=== PATIENT | female | born 1960 | race American Indian/Alaskan Native ===

== ENCOUNTER 2020-06-05 08:52 | Emergency (ER) | payer MEDICAID, MEDICARE ==
[2020-06-05] MEDS ORDERED: KETOROLAC 30 MG/1 ML INJ IV ONE (10:34)
[2020-06-05] MEDS ORDERED: MORPHINE 4 MG/1 ML INJ IV ONE (10:34)
[2020-06-05] MEDS ORDERED: ONDANSETRON 4 MG/2 ML INJ IV NR (11:00)
--- NOTE | 2020-06-05 11:00 | XRay Report ---
CHEST 2 VIEWS INDICATION: Chest Pain. COMPARISON: None FINDINGS: Support devices: None. Heart: Within normal limits. Lungs: No acute air space or interstitial disease. Pleura: No significant pleural effusion. No pneumothorax. Additional findings: None. IMPRESSION: 1. No acute findings. Signer Name: Washington Raman MD Signed: 06/05/2020 10:56 AM Workstation Name: [email or web address]
[2020-06-05 11:24] LABS: Bacteria,Urine 1+ /HPF (Negative); Bilirubin,Urine NEG (Negative); Blood,Urine NEG (Negative); Color,Urine Yellow (Yellow); Mucus,Urine FEW /HPF; Protein,Urine <15 mg/dL mg/dL (Negative); Urobilinogen,Urine < 2.0 mg/dL (<2.0)
[2020-06-05 11:26] LABS: Basophils % (Auto) 0.3 % (0.0-1.8); Eosinophils # (Auto) 0.1 K/mm3 (0.0-0.4); Eosinophils % (Auto) 0.7 % (0.0-4.3); Hematocrit 32.4 % (30.3-42.9); Hemoglobin 11.1 gm/dl (10.1-14.3); Lymphocytes # (Auto) 3.1 K/mm3 (1.2-5.4); Lymphocytes % (Auto) 32.4 % (13.4-35.0); Mean Corpuscular HGB Conc 34 % (30-34); Mean Corpuscular Volume 80 fl (79-97); Monocytes # (Auto) 0.7 K/mm3 (0.0-0.8); Monocytes % (Auto) 7.1 % (0.0-7.3); Platelet Count 232 K/mm3 (140-440); Red Blood Count 4.05 M/mm3 (3.65-5.03); Red Cell Distribution Width 14.7 % (13.2-15.2)
[2020-06-05 11:35] LABS: INR 0.96 (0.87-1.13)
[2020-06-05 11:36] LABS: Partial Thromboplastin Time 26.3 Sec. (24.2-36.6)
[2020-06-05 11:46] LABS: Alanine Aminotransferase 9 units/L (7-56); Albumin 4.2 g/dL (3.9-5); BUN/Creatinine Ratio 22; Blood Urea Nitrogen 20 mg/dL (7-17); Calcium 10.4 mg/dL (8.4-10.2); Hemolysis Index 1
[2020-06-05] MEDS ORDERED: POTASSIUM CHLORIDE ER 20 MEQ TAB PO ONE (11:52)
--- NOTE | 2020-06-05 12:07 | Emergency Department Report ---
ED Lower Extremity HPI - General Chief Complaint: Extremity Problem,Nontraumatic Stated Complaint: LT LEG PAIN Time Seen by Provider: 06/05/20 10:28 Source: patient Mode of arrival: Ambulatory Limitations: No Limitations - History of Present Illness Initial Comments: This is a 60-year-old female nontoxic, well nourished in appearance, no acute signs of distress presents to the ED with c/o of left leg pain x several days. Patient denies any trauma or injuries. Patient denies any radiation of pain. Patient denies any numbness, tingling, fever, chills, nausea, vomiting, chest pain, shortness of breath, headache, stiff neck. Patient denies any joint swelling or joint redness. Patient denies decreased range of motion. Patient denies abnormal gait. Patient denies any long car rides or recent hospital stays. Patient stated allergies to tramadol and meperdine. PMH includes HTN which is compliant with her medication and does follow-up with a PCP for this. Patient stated normal blood pressure is in the high 190s/110s. -: days(s) Injury: Leg: Left Severity: mild Severity scale (0 -10): 8 Improves With: nothing Worsens With: nothing Associated Symptoms: ambulatory. denies: snap/pop sensation, swelling, numbness, tingling, unable to bear weight, able to partially bear weight - Related Data Previous Rx's Medication Instructions Recorded Last Taken Type Acetaminophen/Codeine [Tylenol 1 tab PO Q8H PRN #8 tab 02/03/20 Unknown Rx /Codeine # 3 tab] Cyclobenzaprine [Flexeril 10 MG 10 mg PO TID PRN #15 tablet 02/03/20 Unknown Rx TAB] Diclofenac Sodium 50 mg PO TID PRN #21 tablet. 03/01/20 Unknown Rx Methocarbamol [Robaxin] 500 mg PO Q8H PRN #30 tablet 03/01/20 Unknown Rx cephALEXin [Keflex] 500 mg PO Q8HR #21 cap 06/05/20 Unknown Rx Allergies Allergy/AdvReac Type Severity Reaction Status Date / Time meperidine [From Demerol] Allergy Unknown Verified 02/03/20 08:17 tramadol Allergy Unknown Verified 02/03/20 08:17 ED Review of Systems ROS: Stated complaint: LT LEG PAIN Other details as noted in HPI Comment: All other systems reviewed and negative Constitutional: denies: chills, fever Eyes: denies: eye pain, eye discharge, vision change ENT: denies: ear pain, throat pain Respiratory: denies: cough, shortness of breath, wheezing Cardiovascular: denies: chest pain, palpitations Endocrine: no symptoms reported Gastrointestinal: denies: abdominal pain, nausea, diarrhea Genitourinary: denies: urgency, dysuria, discharge Musculoskeletal: denies: back pain, joint swelling, arthralgia Skin: denies: rash, lesions Neurological: denies: headache, weakness, paresthesias Psychiatric: denies: anxiety, depression Hematological/Lymphatic: denies: easy bleeding, easy bruising ED Past Medical Hx - Past Medical History Previous Medical History?: Yes Hx Hypertension: Yes Additional medical history: sciatica - Surgical History Past Surgical History?: Yes Additional Surgical History: Breast - Social History Smoking Status: Never Smoker Substance Use Type: None - Medications Home Medications: Home Medications Medication Instructions Recorded Confirmed Last Taken Type Acetaminophen/Codeine [Tylenol 1 tab PO Q8H PRN #8 tab 02/03/20 Unknown Rx /Codeine # 3 tab] Cyclobenzaprine [Flexeril 10 MG 10 mg PO TID PRN #15 tablet 02/03/20 Unknown Rx TAB] Diclofenac Sodium 50 mg PO TID PRN #21 tablet.dr 03/01/20 Unknown Rx Methocarbamol [Robaxin] 500 mg PO Q8H PRN #30 tablet 03/01/20 Unknown Rx cephALEXin [Keflex] 500 mg PO Q8HR #21 cap 06/05/20 Unknown Rx ED Physical Exam - General Limitations: No Limitations General appearance: alert, in no apparent distress - Head Head exam: Present: atraumatic, normocephalic - Eye Eye exam: Present: normal appearance, PERRL, EOMI - Neck Neck exam: Present: normal inspection, full ROM. Absent: tenderness, meningismus, lymphadenopathy - Respiratory Respiratory exam: Present: normal lung sounds bilaterally. Absent: respiratory distress, wheezes, rales, rhonchi, stridor, chest wall tenderness, accessory muscle use, decreased breath sounds, prolonged expiratory - Cardiovascular Cardiovascular Exam: Present: regular rate, normal rhythm, normal heart sounds. Absent: bradycardia, tachycardia, irregular rhythm, systolic murmur, diastolic murmur, rubs, gallop - GI/Abdominal GI/Abdominal exam: Present: soft, normal bowel sounds. Absent: distended, tenderness, guarding, rebound, rigid, diminished bowel sounds - Extremities Exam Extremities exam: Present: normal inspection, full ROM, tenderness, normal capillary refill. Absent: joint swelling, calf tenderness - Expanded Lower Extremity Exam Left Hip exam: Present: normal inspection, full ROM, external rotation, internal rotation, pelvic stability. Absent: tenderness, swelling, abrasion, laceration, ecchymosis, deformity, crepidus, dislocation, erythema, shortening Upper Leg exam: Present: normal inspection, full ROM, tenderness. Absent: swelling, abrasion, laceration, ecchymosis, deformity, crepidus, dislocation, erythema Knee exam: Present: normal inspection, full ROM, full knee extension. Absent: tenderness, swelling, abrasion, laceration, ecchymosis, deformity, crepidus, dislocation, erythema, effusion, pain w/ pronation/supination, posterior draw sign, pain/laxity with valgus, pain/laxity with varus Lower Leg exam: Present: normal inspection, full ROM. Absent: tenderness, swelling, abrasion, laceration, ecchymosis, deformity, crepidus, dislocation, erythema, palpable cord, Yue's sign Ankle exam: Present: normal inspection, full ROM. Absent: tenderness, swelling, abrasion, laceration, ecchymosis, deformity, crepidus, dislocation, erythema, anterior draw sign Foot/Toe exam: Present: normal inspection, full ROM. Absent: tenderness, swelling, abrasion, laceration, ecchymosis, deformity, crepidus, dislocation, erythema, puncture wound, foreign body, calcaneal tenderness, tenderness at base of 5th metatarsal, nail avulsion, subungual hematoma Neuro vascular tendon exam: Present: no vascular compromise Gait: Positive: observed and normal 1 - pain here - Back Exam Back exam: Present: normal inspection, full ROM. Absent: tenderness - Neurological Exam Neurological exam: Present: alert, oriented X3, normal gait - Psychiatric Psychiatric exam: Present: normal affect, normal mood - Skin Skin exam: Present: warm, dry, intact, normal color. Absent: rash ED Course Vital Signs 06/05/20 06/05/20 06/05/20 09:10 11:36 12:43 Temperature 98.3 F Pulse Rate 83 77 Respiratory 19 18 12 Rate Blood Pressure 223/118 Blood Pressure 189/99 [Right] O2 Sat by Pulse 98 97 Oximetry - Reevaluation(s) Reevaluation #1: 06/05/20 12:06 Patient is speaking in full sentences with no signs of distress noted. ED Lower Extremity MDM - Lab Data Result diagrams: 06/05/20 10:55 06/05/20 10:55 Lab Results 06/05/20 06/05/20 06/05/20 Range/Units 10:55 10:55 10:55 WBC 9.5 (4.5-11.0) K/mm3 RBC 4.05 (3.65-5.03) M/mm3 Hgb 11.1 (10.1-14.3) gm/dl Hct 32.4 (30.3-42.9) % MCV 80 (79-97) fl MCH 27 L (28-32) pg MCHC 34 (30-34) % RDW 14.7 (13.2-15.2) % Plt Count 232 (140-440) K/mm3 Lymph % (Auto) 32.4 (13.4-35.0) % [place] % (Auto) 7.1 (0.0-7.3) % Eos % (Auto) 0.7 (0.0-4.3) % Baso % (Auto) 0.3 (0.0-1.8) % Lymph # (Auto) 3.1 (1.2-5.4) K/mm3 [place] # (Auto) 0.7 (0.0-0.8) K/mm3 Eos # (Auto) 0.1 (0.0-0.4) K/mm3 Baso # (Auto) 0.0 (0.0-0.1) K/mm3 Seg Neutrophils % 59.5 (40.0-70.0) % Seg Neutrophils # 5.7 (1.8-7.7) K/mm3 PT 12.7 (12.2-14.9) Sec. INR 0.96 (0.87-1.13) APTT 26.3 (24.2-36.6) Sec. Sodium 144 (137-145) mmol/L Potassium 3.2 L (3.6-5.0) mmol/L Chloride 105.9 (98-107) mmol/L Carbon Dioxide 29 (22-30) mmol/L Anion Gap 12 mmol/L BUN 20 H (7-17) mg/dL Creatinine 0.9 (0.6-1.2) mg/dL Estimated GFR > 60 ml/min BUN/Creatinine Ratio 22 % Glucose 95 (65-100) mg/dL Calcium 10.4 H (8.4-10.2) mg/dL Total Bilirubin 0.70 (0.1-1.2) mg/dL AST 13 (5-40) units/L ALT 9 (7-56) units/L Alkaline Phosphatase 125 (35-129) units/L Troponin T < 0.010 (0.00-0.029) ng/mL Total Protein 7.5 (6.3-8.2) g/dL Albumin 4.2 (3.9-5) g/dL Albumin/Globulin Ratio 1.3 % Urine Color (Yellow) Urine Turbidity (Clear) Urine pH (5.0-7.0) Ur Specific [place] (1.003-1.030) Urine Protein (Negative) mg/dL Urine Glucose (UA) (Negative) mg/dL Urine Ketones (Negative) mg/dL Urine Blood (Negative) Urine Nitrite (Negative) Urine Bilirubin (Negative) Urine Urobilinogen (<2.0) mg/dL Ur Leukocyte Esterase (Negative) Urine WBC (Auto) (0.0-6.0) /HPF Urine RBC (Auto) (0.0-6.0) /HPF U Epithel Cells (Auto) (0-13.0) /HPF Urine Bacteria (Auto) (Negative) /HPF Urine Mucus /HPF 06/05/ Range/Units 11:07 WBC (4.5-11.0) K/mm3 RBC (3.65-5.03) M/mm3 Hgb (10.1-14.3) gm/dl Hct (30.3-42.9) % MCV (79-97) fl MCH (28-32) pg MCHC (30-34) % RDW (13.2-15.2) % Plt Count (140-440) K/mm3 Lymph % (Auto) (13.4-35.0) % [place] % (Auto) (0.0-7.3) % Eos % (Auto) (0.0-4.3) % Baso % (Auto) (0.0-1.8) % Lymph # (Auto) (1.2-5.4) K/mm3 [place] # (Auto) (0.0-0.8) K/mm3 Eos # (Auto) (0.0-0.4) K/mm3 Baso # (Auto) (0.0-0.1) K/mm3 Seg Neutrophils % (40.0-70.0) % Seg Neutrophils # (1.8-7.7) K/mm3 PT (12.2-14.9) Sec. INR (0.87-1.13) APTT (24.2-36.6) Sec. Sodium (137-145) mmol/L Potassium (3.6-5.0) mmol/L Chloride (98-107) mmol/L Carbon Dioxide (22-30) mmol/L Anion Gap mmol/L BUN (7-17) mg/dL Creatinine (0.6-1.2) mg/dL Estimated GFR ml/min BUN/Creatinine Ratio % Glucose (65-100) mg/dL Calcium (8.4-10.2) mg/dL Total Bilirubin (0.1-1.2) mg/dL AST (5-40) units/L ALT (7-56) units/L Alkaline Phosphatase (35-129) units/L Troponin T (0.00-0.029) ng/mL Total Protein (6.3-8.2) g/dL Albumin (3.9-5) g/dL Albumin/Globulin Ratio % Urine Color Yellow (Yellow) Urine Turbidity Clear (Clear) Urine pH 5.0 (5.0-7.0) Ur Specific [place] 1.018 (1.003-1.030) Urine Protein <15 mg/dl (Negative) mg/dL Urine Glucose (UA) Neg (Negative) mg/dL Urine Ketones Neg (Negative) mg/dL Urine Blood Neg (Negative) Urine Nitrite Pos (Negative) Urine Bilirubin Neg (Negative) Urine Urobilinogen < 2.0 (<2.0) mg/dL Ur Leukocyte Esterase Tr (Negative) Urine WBC (Auto) 15.0 H (0.0-6.0) /HPF Urine RBC (Auto) 5.0 (0.0-6.0) /HPF U Epithel Cells (Auto) 7.0 (0-13.0) /HPF Urine Bacteria (Auto) 1+ (Negative) /HPF Urine Mucus Few /HPF - EKG Data 06/05/20 12:19 Normal sinus rhythm at 67 bpm. Left ventricular hypertrophy. Borderline ST elevation, lateral leads. Reviewed and signed by MD. - Radiology Data Referring Physician: ELISHA PARRISH Patient Name: COLIN RAPHAEL Date of : 1960 Sex: Female Report Date: 2020-06-05 Report Status: [place] [address] XRay Report Signed Patient: COLIN RAPHAEL MR #: [id number] : 1960 Acct:[id number] Age/Sex: 60 / F ADM Date: 06/05/20 Loc: ED Attending Dr: Ordering Physician: ELISHA PARRISH NP Date of Service: 06/05/20 Procedure(s): XR chest routine 2V Accession Number(s): [id number] cc: ELISHA PARRISH NP Fluoro Time In Minutes: CHEST 2 VIEWS INDICATION: Chest Pain. COMPARISON: None FINDINGS: Support devices: None. Heart: Within normal limits. Lungs: No acute air space or interstitial disease. Pleura: No significant pleural effusion. No pneumothorax. Additional findings: None. IMPRESSION: 1. No acute findings. Signer Name: Washington Raman MD Signed: 06/05/2020 10:56 AM Workstation Name: [id number] Transcribed By: WG Dictated By: Washington Raman MD Electronically Authenticated By: Washington Raman MD Signed Date/Time: 06/05/20 105 DD/ 105 TD/TT: - Medical Decision Making 60-year-old female that presents with left leg pain, hypertension and UTI. Patient is stable and was examined by me. Doppler ultrasound has been ordered but patient stated she has to leave before getting the Doppler done. Patient was educated and instructed of my concerns for possible DVT but patient refused and signed AGAINST MEDICAL ADVICE. Patient received medical treatment in ER blister has significantly decreased prior to signing AMA. I will treat patient with Keflex for UTI. Patient was instructed to follow-up with a primary care doctor JEVON or if symptoms worsen and continue return to emergency room as soon as possible. At time of signing AMA, the patient does not seem toxic or ill in appearance. No acute signs of distress noted. Patient agrees to treatment plan of care. No further questions noted by the patient. Critical care attestation.: If time is entered above; I have spent that time in minutes in the direct care of this critically ill patient, excluding procedure time. ED Disposition Clinical Impression: Hypokalemia, Left leg pain UTI (urinary tract infection) Qualifiers: Urinary tract infection type: acute cystitis Hematuria presence: without hematuria Qualified Code(s): N30.00 - Acute cystitis without hematuria HTN (hypertension) Qualifiers: Hypertension type: unspecified Qualified Code(s): I10 - Essential (primary) hypertension Disposition: MED SCREENING EXAM-LEFT Is pt being admited?: No Does the pt Need Aspirin: No Condition: Undetermined Instructions: Hypertension (ED), Urinary Tract Infection, Adult, [id number], Hypokalemia, Hypertension, Adult Additional Instructions: Follow-up with a primary care doctor as soon as possible or if symptoms worsen and continue return to emergency room as soon as possible. Your condition may be serious as instructed and educated today in the ER but you decided to leave AGAINST MEDICAL ADVICE. It is highly recommended to see a provider as soon as possible to rule out serious complications that was described to you during your ED stay. Prescriptions: cephALEXin [Keflex] 500 mg PO Q8HR #21 cap Referrals: PRIMARY MD DEANNA [Primary Care Provider] - JEVON RONY HARO MD [Staff Physician] - JEVON Forms: AMA Form Time of Disposition: 13:08
[2020-06-05 12:43] VITALS: BP 189/99
== END 2020-06-05 13:12 | disposition left against medical advice (07) ==
LOC: ED 08:52
DX: N39.0 Urinary tract infection, site not specified (principal); E87.6 Hypokalemia; M79.605 Pain in left leg; I10 Essential (primary) hypertension; Z98.890 Other specified postprocedural states; Z79.899 Other long term (current) drug therapy; Z88.8 Allergy status to other drugs, medicaments and biological substances; Z53.21 Procedure and treatment not carried out due to patient leaving prior to being seen by health care provider
CPT/HCPCS: 36415; 71046; 80053; 81001; 84484; 85025; 85610; 85730; 87086; 93005; J1885; J2270; J2405

== ENCOUNTER 2020-11-18 08:09 | Emergency (ER) | payer MEDICARE ==
--- NOTE | 2020-11-18 10:40 | Emergency Department Report ---
ED Back Pain/Injury HPI - General Chief Complaint: Extremity Injury, Lower Stated Complaint: LT HIP PAIN/SCIATICA Time Seen by Provider: 11/18/20 10:35 Source: patient Limitations: No Limitations - History of Present Illness Initial Comments: 60-year-old female with a past medical history of hypertension, and a known history of sciatica secondary to herniated disc in her lower back presents to the ER today with complaints of flareup of her sciatic nerve pain on the left side. Patient states that her sciatic nerve pain typically has been intermittent in the past but recently in the past 3 months it has been a constant waxing and waning pain. She states that she recently moved here from [place] and while he was at [place] she was being treated by pain management as well as her primary care doctor for this pain. She was being prescribed hydrocodone by pain management and Motrin by her primary care doctor. S she states that she is out of her medications. He states that since moving here she has been having issues switching her insurance and therefore has not established with a PCP as yet. He denies any recent injury or strenuous activity. She states that the pain radiates down into her left leg with some tingling intermittently in her left toes. She denies any lower extremity weakness, saddle anesthesia, abdominal pain, bowel or bladder incontinence, urinary retention or constipation, chest pain or shortness of breath. She denies any fever or chills. MD Complaint: back pain -: year(s) (Chronic ) - Related Data Previous Rx's Medication Instructions Recorded Last Taken Type Diclofenac Sodium 50 mg PO TID PRN #21 tablet. 03/01/20 Unknown Rx Methocarbamol [Robaxin] 500 mg PO Q8H PRN #30 tablet 03/01/20 Unknown Rx cephALEXin [Keflex] 500 mg PO Q8HR #21 cap 06/05/20 Unknown Rx Acetaminophen/Codeine [Tylenol 1 tab PO Q8H PRN #8 tab 11/18/20 Unknown Rx /Codeine # 3 tab] Cyclobenzaprine [Flexeril 10 MG 10 mg PO TID PRN #15 tablet 11/18/20 Unknown Rx TAB] Ibuprofen [Motrin] 600 mg PO Q8H PRN #30 tablet 11/18/20 Unknown Rx methylPREDNISolone [Medrol 4MG 4 mg PO DAILY #1 tab.ds.pk 11/18/20 Unknown Rx DOSEPAK (21 tabs)] Allergies Allergy/AdvReac Type Severity Reaction Status Date / Time meperidine [From Demerol] Allergy Unknown Verified 02/03/20 08:17 tramadol Allergy Unknown Verified 02/03/20 08:17 ED Review of Systems ROS: Stated complaint: LT HIP PAIN/SCIATICA Other details as noted in HPI Comment: All other systems reviewed and negative Constitutional: denies: chills, fever Eyes: denies: eye pain, eye discharge, vision change ENT: denies: ear pain, throat pain, dental pain, hearing loss, epistaxis, congestion Respiratory: denies: cough, shortness of breath, SOB with exertion, SOB at rest, stridor, wheezing Cardiovascular: denies: chest pain, palpitations, dyspnea on exertion, edema, syncope, paroxysmal nocturnal dyspnea Gastrointestinal: denies: abdominal pain, nausea, vomiting, diarrhea, constipation, hematemesis, hematochezia Genitourinary: denies: urgency, dysuria, frequency, hematuria, discharge, abnormal menses, dyspareunia Musculoskeletal: back pain. denies: joint swelling, arthralgia, myalgia Skin: denies: rash, lesions Neurological: paresthesias. denies: headache, weakness, numbness, confusion, abnormal gait, vertigo Psychiatric: denies: anxiety, depression, auditory hallucinations, visual hallucinations, homicidal thoughts, suicidal thoughts Hematological/Lymphatic: denies: easy bleeding, easy bruising ED Past Medical Hx - Past Medical History Hx Hypertension: Yes Additional medical history: sciatica - Surgical History Additional Surgical History: Breast - Social History Smoking Status: Never Smoker Substance Use Type: None - Medications Home Medications: Home Medications Medication Instructions Recorded Confirmed Last Taken Type Diclofenac Sodium 50 mg PO TID PRN #21 tablet. 03/01/20 Unknown Rx Methocarbamol [Robaxin] 500 mg PO Q8H PRN #30 tablet 03/01/20 Unknown Rx cephALEXin [Keflex] 500 mg PO Q8HR #21 cap 06/05/20 Unknown Rx Acetaminophen/Codeine [Tylenol 1 tab PO Q8H PRN #8 tab 11/18/20 Unknown Rx /Codeine # 3 tab] Cyclobenzaprine [Flexeril 10 MG 10 mg PO TID PRN #15 tablet 11/18/20 Unknown Rx TAB] Ibuprofen [Motrin] 600 mg PO Q8H PRN #30 tablet 11/18/20 Unknown Rx methylPREDNISolone [Medrol 4MG 4 mg PO DAILY #1 tab.ds.pk 11/18/20 Unknown Rx DOSEPAK (21 tabs)] ED Physical Exam - General Limitations: No Limitations General appearance: alert, in no apparent distress, obese - Head Head exam: Present: atraumatic, normocephalic, normal inspection - Eye Eye exam: Present: normal appearance, PERRL, EOMI Pupils: Present: normal accommodation - ENT ENT exam: Present: normal exam, mucous membranes moist - Neck Neck exam: Present: normal inspection, full ROM - Respiratory Respiratory exam: Present: normal lung sounds bilaterally. Absent: respiratory distress, wheezes, rales, rhonchi - Cardiovascular Cardiovascular Exam: Present: regular rate, normal rhythm, normal heart sounds - GI/Abdominal GI/Abdominal exam: Present: soft. Absent: distended, tenderness, guarding, rebound - Extremities Exam Extremities exam: Present: normal inspection, full ROM. Absent: tenderness, pedal edema, calf tenderness - Back Exam Back exam: Present: normal inspection, full ROM (Range of motion of the lumbar spine mildly painful but otherwise normal.), other (Patient has tenderness to palpation mainly to the left buttocks area). Absent: paraspinal tenderness, vertebral tenderness - Neurological Exam Neurological exam: Present: alert, oriented X3, CN II-XII intact, normal gait. Absent: motor sensory deficit - Psychiatric Psychiatric exam: Present: normal affect, normal mood - Skin Skin exam: Present: intact ED Course Vital Signs 11/18/20 08:32 Temperature 98.4 F Pulse Rate 90 Respiratory 18 Rate Blood Pressure 174/92 [Left] O2 Sat by Pulse 95 Oximetry ED Medical Decision Making - Medical Decision Making The patient presented with a flareup of her chronic sciatic pain. The patient is now resting comfortably and is not in any significant distress. She is is alert, talkative, interactive and is neurologically intact and is ambulatory in the ED. She has no fever, no bowel or bladder incontinence, no saddle anesthesia and is otherwise alert and well-appearing. Her history, physical examination and does not suggest the presence of acute spinal epidural abscess, acute epidural bleed, cauda equina syndrome, abdominal/thoracic aortic aneurysm, aortic dissection or other acute process requiring further testing, treatment or consultation in the emergency department. The patient condition is stable and appropriate for discharge. The patient will pursue further outpatient evaluation with the primary care physician. Critical care attestation.: If time is entered above; I have spent that time in minutes in the direct care of this critically ill patient, excluding procedure time. ED Disposition Clinical Impression: Chronic low back pain with left-sided sciatica Disposition: TO HOME OR SELFCARE Is pt being admited?: No Does the pt Need Aspirin: No Condition: Stable Instructions: Sciatica, [id number], Chronic Back Pain, [id number] Additional Instructions: Recommend that he take the Medrol Dosepak, Motrin, Flexeril and the Tylenol threes as prescribed. Follow-up with the primary care doctor listed on your discharge instructions to get set up for referral to pain management. Return to the ER if your symptoms changes or worsens in any way. Prescriptions: Cyclobenzaprine [Flexeril 10 MG TAB] 10 mg PO TID PRN #15 tablet PRN Reason: Muscle Spasm methylPREDNISolone [Medrol 4MG DOSEPAK (21 tabs)] 4 mg PO DAILY #1 tab.ds.pk Ibuprofen [Motrin] 600 mg PO Q8H PRN #30 tablet PRN Reason: Pain Acetaminophen/Codeine [Tylenol /Codeine # 3 tab] 1 tab PO Q8H PRN #8 tab PRN Reason: Pain , Severe (7-10) Referrals: RONY HARO MD [Staff Physician] - 3-5 Days Time of Disposition: 10:42
== END 2020-11-18 11:29 | disposition home or self-care (01) ==
LOC: ED 08:09
CPT/HCPCS: 99281

== ENCOUNTER 2021-07-29 08:08 | Emergency (ER) | payer MEDICARE ==
--- NOTE | 2021-07-29 09:01 | Emergency Department Report ---
ED Fall HPI - General Chief Complaint: Back Pain/Injury Stated Complaint: FALL/BI SIDE/RT ARM/SHOULDER PAIN Time Seen by Provider: 07/29/21 08:54 Source: patient Mode of arrival: Wheelchair - History of Present Illness Initial Comments: 61-year-old -[place] Citizen female presents to the emergency room stating she had fallen yesterday on the side of her bed which has wood planks. She states that she injured her right shoulder and left lateral ribs. She states this morning she was not able to lift her right arm or straighten out her elbow without pain. She states that on her left side of her rib cage she has pain and is worse with deep breath. She denies any head injury feels like she did not lose consciousness but not the ear out of her when she fell on her left side of her chest. She has a current history of hypertension and a past history of breast cancer. MD Complaint: fall Onset/Timin -: days(s) Fall From: standing When Fall Occurred: 24 hours [employer] Fall Witnessed: no Place Fall Occurred: home Loss of Consciousness: unsure Prolonged Down Time?: no Symptoms Prior to Fall: none Location: chest Location - Extremities: Right: Shoulder Severity scale (0 -10): 10 Quality: sharp, stabbing Context: tripped/slipped Associated Symptoms: chest paint. denies: headache, neck pain, numbness, shortness of breath, lightheaded, vertigo, confusion - Related Data Previous Rx's Medication Instructions Recorded Last Taken Type Diclofenac Sodium 50 mg PO TID PRN #21 tablet. 03/01/20 Unknown Rx Methocarbamol [Robaxin] 500 mg PO Q8H PRN #30 tablet 03/01/20 Unknown Rx cephALEXin [Keflex] 500 mg PO Q8HR #21 cap 06/05/20 Unknown Rx Acetaminophen/Codeine [Tylenol 1 tab PO Q8H PRN #8 tab 11/18/20 Unknown Rx /Codeine # 3 tab] Cyclobenzaprine [Flexeril 10 MG 10 mg PO TID PRN #15 tablet 11/18/20 Unknown Rx TAB] Ibuprofen [Motrin] 600 mg PO Q8H PRN #30 tablet 11/18/20 Unknown Rx methylPREDNISolone [Medrol 4MG 4 mg PO DAILY #1 tab.ds.pk 11/18/20 Unknown Rx DOSEPAK (21 tabs)] Oxycodone HCl/Acetaminophen 1 each PO Q6HR PRN #15 tab 07/29/21 Unknown Rx [Percocet 7.5/325 mg] Allergies Allergy/AdvReac Type Severity Reaction Status Date / Time meperidine [From Demerol] Allergy Unknown Verified 02/03/20 08:17 tramadol Allergy Unknown Verified 02/03/20 08:17 ED Review of Systems ROS: Stated complaint: FALL/BI SIDE/RT ARM/SHOULDER PAIN Other details as noted in HPI Comment: All other systems reviewed and negative ED Past Medical Hx - Past Medical History Hx Hypertension: Yes Additional medical history: sciatica - Surgical History Additional Surgical History: Breast - Social History Smoking Status: Never Smoker Substance Use Type: None - Medications Home Medications: Home Medications Medication Instructions Recorded Confirmed Last Taken Type Diclofenac Sodium 50 mg PO TID PRN #21 tablet.dr 03/01/20 Unknown Rx Methocarbamol [Robaxin] 500 mg PO Q8H PRN #30 tablet 03/01/20 Unknown Rx cephALEXin [Keflex] 500 mg PO Q8HR #21 cap 06/05/20 Unknown Rx Acetaminophen/Codeine [Tylenol 1 tab PO Q8H PRN #8 tab 11/18/20 Unknown Rx /Codeine # 3 tab] Cyclobenzaprine [Flexeril 10 MG 10 mg PO TID PRN #15 tablet 11/18/20 Unknown Rx TAB] Ibuprofen [Motrin] 600 mg PO Q8H PRN #30 tablet 11/18/20 Unknown Rx methylPREDNISolone [Medrol 4MG 4 mg PO DAILY #1 tab.ds.pk 11/18/20 Unknown Rx DOSEPAK (21 tabs)] Oxycodone HCl/Acetaminophen 1 each PO Q6HR PRN #15 tab 07/29/21 Unknown Rx [Percocet 7.5/325 mg] ED Physical Exam - General Limitations: No Limitations General appearance: alert, in no apparent distress, obese - Head Head exam: Present: atraumatic, normocephalic - Eye Eye exam: Present: normal appearance - ENT ENT exam: Present: mucous membranes moist. Absent: normal external ear exam - Neck Neck exam: Present: normal inspection - Respiratory Respiratory exam: Present: normal lung sounds bilaterally, chest wall tenderness. Absent: respiratory distress, accessory muscle use - Cardiovascular Cardiovascular Exam: Present: regular rate, normal rhythm. Absent: systolic murmur, diastolic murmur, rubs, gallop - GI/Abdominal GI/Abdominal exam: Present: soft, normal bowel sounds - Extremities Exam Extremities exam: Present: normal inspection - Back Exam Back exam: Present: normal inspection - Neurological Exam Neurological exam: Present: alert, oriented X3 - Psychiatric Psychiatric exam: Present: normal affect, normal mood. Absent: agitated, anxious, homicidal ideation, suicidal ideation - Skin Skin exam: Present: warm, dry, intact, normal color. Absent: rash ED Course Vital Signs 07/29/21 09:08 Temperature 98.5 F Pulse Rate 95 H Respiratory 17 Rate Blood Pressure 133/90 [Right] O2 Sat by Pulse 97 Oximetry ED Medical Decision Making - Radiology Data Radiology results: report reviewed [address] [address] XRay Report Signed Patient: COLIN SHINE R#: [id number] : 1960 A cct:[id number] Age/Sex: 61 / F ADM Date: 07/29/21 Loc: ED Attending Dr: Ordering Physician: ALEXA WRIGHT Date of Service: 07/29/21 Procedure(s): XR shoulder 2+V RT Accession Number(s): [id number] cc: ALEXA WRIGHT Fluoro Time In Minutes: RIGHT SHOULDER 3 VIEW(S) INDICATION / CLINICAL INFORMATION: fall injuried rt shoulder COMPARISON: None available. FINDINGS: BONES / JOINT(S): Mildly displaced fracture involving greater tuberosity of hum erus. No significant arthritis. SOFT TISSUES: No significant abnormality. ADDITIONAL FINDINGS: None. Signer Name: Bruce Leal MD Signed: 07/29/2021 9:50 AM Workstation Name: [id number] Transcribed By: TL Dictated By: Bruce Leal MD Electronically Authenticated By: Bruce Leal MD Signed Date/Time: 07/29/21949 DD/ 8 TD/TT: Study Comments [address] [address] XRay Report Signed Patient: COLIN SHINE R#: [id number] : 1960 Acct:[id number] Age/Sex: 61 / F ADM Date: 07/29/21 Loc: ED Attending Dr: Ordering Physician: ALEXA WRIGHT Date of Service: 07/29/21 Procedure(s): XR ribs UNI w PA chest 3+V LT Accession Number(s): [id number] cc: ALEXA WRIGHT Fluoro Time In Minutes: LEFT RIBS 5 VIEWS PA CHEST RADIOGRAPH INDICATION / CLINICAL INFORMATION: fall with truma to left ribs. COMPARISON: None available. FINDINGS: RIBS: No acute, displaced fracture or other acute abnormality. Chest: Cardiomediastinal silhouette: Normal cardiac size. Normal mediastinal contours. LUNGS: No acute findings. No pneumothorax. Signer Name: Bruce Leal MD Signed: 07/29/2021 9:52 AM Workstation Name: [id number] Transcribed By: TL Dictated By: Bruce Leal MD Electronically Authenticated By: Bruce Leal MD Signed Date/Time: 07/29/21951 DD/ 0 TD/TT: - Medical Decision Making 61-year-old -[place] Citizen female presents to the emergency room stating she had fallen yesterday on the side of her bed which has wood planks. She states that she injured her right shoulder and left lateral ribs. She states this morning she was not able to lift her right arm or straighten out her elbow without pain. She states that on her left side of her rib cage she has pain and is worse with deep breath. She denies any head injury feels like she did not lose consciousness but not the ear out of her when she fell on her left side of her chest. She has a current history of hypertension and a past history of breast cancer. Critical care attestation.: If time is entered above; I have spent that time in minutes in the direct care of this critically ill patient, excluding procedure time. ED Disposition Clinical Impression: Shoulder fracture, right, Contusion of rib on left side Disposition: HOME / SELF CARE / HOMELESS Is pt being admited?: No Does the pt Need Aspirin: No Condition: Stable Additional Instructions: X-ray of ribs show no fractures no dislocations diagnosing her with rib contusion. X-ray of right shoulder shows a fracture of the greater tuberosity of the humerus. I am placing you in a shoulder immobilizer pain medication and referral to an orthopedic provider. Please do not operate heavy machinery while taking narcotics. Prescriptions: Oxycodone HCl/Acetaminophen [Percocet 7.5/325 mg] 1 each PO Q6HR PRN #15 tab PRN Reason: Pain Referrals: PRIMARY CAREMD [Primary Care Provider] - 3-5 Days ZAN WALTERS MD [Staff Physician] - 3-5 Days Forms: Work/School Release Form(ED) Time of Disposition: 10:30
[2021-07-29 09:09] VITALS: BP 133/90
--- NOTE | 2021-07-29 09:54 | XRay Report ---
RIGHT SHOULDER 3 VIEW(S) INDICATION / CLINICAL INFORMATION: fall injuried rt shoulder COMPARISON: None available. FINDINGS: BONES / JOINT(S): Mildly displaced fracture involving greater tuberosity of humerus. No significant a rthritis. SOFT TISSUES: No significant abnormality. ADDITIONAL FINDINGS: None. Signer Name: Bruce Leal MD Signed: 07/29/2021 9:50 AM Workstation Name: [id number]
--- NOTE | 2021-07-29 09:56 | XRay Report ---
LEFT RIBS 5 VIEWS PA CHEST RADIOGRAPH INDICATION / CLINICAL INFORMATION: fall with truma to left ribs. COMPARISON: None available. FINDINGS: RIBS: No acute, displaced fracture or other acute abnormality. Chest: Cardiomediastinal silhouette: Normal cardiac size. Normal mediastinal contours. LUNGS: No acute findings. No pneumothorax. Signer Name: Bruce Leal MD Signed: 07/29/2021 9:52 AM Workstation Name: [id number]
[2021-07-29] MEDS ORDERED: KETOROLAC 30 MG/1 ML INJ IM ONE (10:29)
== END 2021-07-29 10:41 | disposition home or self-care (01) ==
LOC: ED 08:08
DX: S42.91XA Fracture of right shoulder girdle, part unspecified, initial encounter for closed fracture (principal); S20.212A Contusion of left front wall of thorax, initial encounter; I10 Essential (primary) hypertension; Z91.09 Other allergy status, other than to drugs and biological substances; W06.XXXA Fall from bed, initial encounter; Y93.89 Activity, other specified; Y92.89 Other specified places as the place of occurrence of the external cause; Y99.8 Other external cause status
CPT/HCPCS: 71101; 73030; 96372; 99283; J1885

== ENCOUNTER 2021-08-21 08:28 | Outpatient (CLI) | payer MEDICARE ==
--- NOTE | 2021-08-21 09:31 | XRay Report ---
RIGHT SHOULDER 3 VIEWS INDICATION: M25.511 PAIN IN RIGHT SHOULDER. COMPARISON: None. IMPRESSION: No acute osseous or soft tissue abnormality. Moderate osteoarthritic changes are iden tified. Signer Name: Zohaib Scales Jr, MD Signed: 08/21/2021 9:27 AM Workstation Name: [id number]
== END 2021-08-21 08:29 | disposition home or self-care (01) ==
LOC: XRAY 08:28
PROVIDERS: ATTEND Orthopaedic Surgery
DX: M19.011 Primary osteoarthritis, right shoulder (principal)

== ENCOUNTER 2021-10-10 08:00 | Outpatient (CLI) | payer MEDICARE ==
--- NOTE | 2021-10-10 10:17 | XRay Report ---
RIGHT SHOULDER 3 VIEWS INDICATION: M25.511 PAIN IN RIGHT SHOULDER. COMPARISON: 07/29/2021. 08/21/2021. IMPRESSION: Previous exams were reviewed. There is subtle increased sclerosis in the region of the r ight humeral neck and greater tuberosity which appears to represent calcified callus associated with a nondisplaced, healing fracture. No new bony injury is appreciated. Mild degenerative changes are st able. The soft tissues are unremarkable. Signer Name: Zohaib Scales Jr, MD Signed: 10/10/2021 10:12 AM Workstation Name: [id number]
== END 2021-10-10 08:01 | disposition home or self-care (01) ==
LOC: XRAY 08:00
PROVIDERS: ATTEND Orthopaedic Surgery
DX: M19.011 Primary osteoarthritis, right shoulder (principal)

== ENCOUNTER 2021-12-23 07:47 | Emergency (ER) | payer MEDICARE ==
[2021-12-23 08:06] VITALS: BP 176/95
== END 2021-12-24 11:00 | disposition left against medical advice (07) ==
LOC: ED 07:47
DX: R22.0 Localized swelling, mass and lump, head (principal); Z53.21 Procedure and treatment not carried out due to patient leaving prior to being seen by health care provider

== ENCOUNTER 2022-02-18 06:48 | Emergency (ER) | payer MEDICARE ==
--- NOTE | 2022-02-18 09:21 | XRay Report ---
CHEST 2 VIEWS INDICATION / CLINICAL INFORMATION: shortness of breath. COMPARISON: Chest radiograph 06/05/2020 FINDINGS: SUPPORT DEVICES: Cervical spinal fusion hardware is present. HEART / MEDIASTINUM: No significant abnormality. LUNGS / PLEURA: No significant pulmonary or pleural abnormality. No pneumothorax. ADDITIONAL FINDINGS: No significant additional findings. IMPRESSION: 1. No acute findings. Signer Name: Zaid Bhatia MD Signed: 02/18/2022 9:16 AM Workstation Name: [id number]
[2022-02-18 10:38] LABS: Basophils # (Auto) 0.1 K/mm3 (0.0-0.1); Basophils % (Auto) 0.8 % (0.0-1.8); Eosinophils # (Auto) 0.1 K/mm3 (0.0-0.4); Eosinophils % (Auto) 0.7 % (0.0-4.3); Hematocrit 36.8 % (30.3-42.9); Hemoglobin 12.3 gm/dl (10.1-14.3); Lymphocytes # (Auto) 4.3 K/mm3 (1.2-5.4); Mean Corpuscular HGB Conc 34 % (30-34); Mean Corpuscular Volume 83 fl (79-97); Monocytes # (Auto) 0.8 K/mm3 (0.0-0.8); Monocytes % (Auto) 6.6 % (0.0-7.3); Platelet Count 302 K/mm3 (140-440); Red Blood Count 4.46 M/mm3 (3.65-5.03); Red Cell Distribution Width 13.9 % (13.2-15.2)
[2022-02-18 10:53] LABS: Alanine Aminotransferase 27 units/L (7-56); Albumin 4.6 g/dL (3.9-5); BUN/Creatinine Ratio 26; Blood Urea Nitrogen 31 mg/dL (7-17); Calcium 10.9 mg/dL (8.4-10.2); Hemolysis Index 1
[2022-02-18] MEDS ORDERED: FUROSEMIDE 40 MG/4 ML INJ IV ONE (12:02)
[2022-02-18] MEDS ORDERED: MORPHINE 4 MG/1 ML INJ IV ONE (13:16)
--- NOTE | 2022-02-18 14:02 | Emergency Department Report ---
ED Shortness of Breath HPI - General Chief Complaint: Dyspnea/Respdistress Stated Complaint: SOB/SWOLLEN FEET/LEGS Time Seen by Provider: 02/18/22 09:33 Source: patient Mode of arrival: Ambulatory Limitations: No Limitations - History of Present Illness Initial Comments: Patient is a 61-year-old female presenting to ED with complaint of shortness of breath and bilateral lower leg swelling for the past 2 weeks. She reports associated burning pain in both legs. She denies any chest pain. - Related Data Previous Rx's Medication Instructions Recorded Last Taken Type Diclofenac Sodium 50 mg PO TID PRN #21 tablet.dr 03/01/20 Unknown Rx Methocarbamol [Robaxin] 500 mg PO Q8H PRN #30 tablet 03/01/20 Unknown Rx cephALEXin [Keflex] 500 mg PO Q8HR #21 cap 06/05/20 Unknown Rx Acetaminophen/Codeine [Tylenol 1 tab PO Q8H PRN #8 tab 11/18/20 Unknown Rx /Codeine # 3 tab] Cyclobenzaprine [Flexeril 10 MG 10 mg PO TID PRN #15 tablet 11/18/20 Unknown Rx TAB] Ibuprofen [Motrin] 600 mg PO Q8H PRN #30 tablet 11/18/20 Unknown Rx methylPREDNISolone [Medrol 4MG 4 mg PO DAILY #1 tab.ds.pk 11/18/20 Unknown Rx DOSEPAK (21 tabs)] Oxycodone HCl/Acetaminophen 1 each PO Q6HR PRN #15 tab 07/29/21 Unknown Rx [Percocet 7.5/325 mg] Allergies Allergy/AdvReac Type Severity Reaction Status Date / Time meperidine [From Demerol] Allergy Unknown Verified 02/03/20 08:17 tramadol Allergy Unknown Verified 02/03/20 08:17 ED Review of Systems ROS: Stated complaint: SOB/SWOLLEN FEET/LEGS Other details as noted in HPI Constitutional: denies: chills, fever Respiratory: shortness of breath. denies: cough, wheezing Cardiovascular: edema. denies: chest pain, palpitations Gastrointestinal: denies: abdominal pain, nausea, diarrhea Genitourinary: denies: urgency, dysuria, discharge Musculoskeletal: denies: back pain, joint swelling, arthralgia Skin: denies: rash, lesions Neurological: denies: headache, weakness, paresthesias Psychiatric: denies: anxiety, depression ED Past Medical Hx - Past Medical History Previous Medical History?: Yes Hx Hypertension: Yes Hx of Cancer: Yes (Right brest) Additional medical history: sciatica - Surgical History Past Surgical History?: Yes Hx Breast Surgery: Yes Additional Surgical History: Breast, Tummy tuck, Breast Augmentation - Social History Smoking Status: Never Smoker Substance Use Type: None - Medications Home Medications: Home Medications Medication Instructions Recorded Confirmed Last Taken Type Diclofenac Sodium 50 mg PO TID PRN #21 tablet.dr 03/01/20 Unknown Rx Methocarbamol [Robaxin] 500 mg PO Q8H PRN #30 tablet 03/01/20 Unknown Rx cephALEXin [Keflex] 500 mg PO Q8HR #21 cap 06/05/20 Unknown Rx Acetaminophen/Codeine [Tylenol 1 tab PO Q8H PRN #8 tab 11/18/20 Unknown Rx /Codeine # 3 tab] Cyclobenzaprine [Flexeril 10 MG 10 mg PO TID PRN #15 tablet 11/18/20 Unknown Rx TAB] Ibuprofen [Motrin] 600 mg PO Q8H PRN #30 tablet 11/18/20 Unknown Rx methylPREDNISolone [Medrol 4MG 4 mg PO DAILY #1 tab.ds.pk 11/18/20 Unknown Rx DOSEPAK (21 tabs)] Oxycodone HCl/Acetaminophen 1 each PO Q6HR PRN #15 tab 07/29/21 Unknown Rx [Percocet 7.5/325 mg] ED Physical Exam - General Limitations: No Limitations General appearance: alert, in no apparent distress, obese - Head Head exam: Present: atraumatic, normocephalic - Respiratory Respiratory exam: Present: normal lung sounds bilaterally. Absent: respiratory distress - Cardiovascular Cardiovascular Exam: Present: regular rate, normal rhythm, normal heart sounds - GI/Abdominal GI/Abdominal exam: Present: soft. Absent: distended, tenderness - Rectal Rectal exam: Present: deferred - Extremities Exam Extremities exam: Present: pedal edema (Mild edema to both lower legs) - Neurological Exam Neurological exam: Present: alert, oriented X3 - Psychiatric Psychiatric exam: Present: normal affect, normal mood - Skin Skin exam: Present: warm, dry, intact, normal color ED Course Vital Signs 02/18/22 07:25 Temperature 98.5 F Pulse Rate 91 H Respiratory 22 Rate Blood Pressure 178/102 [Right] O2 Sat by Pulse 98 Oximetry ED Medical Decision Making - Lab Data Result diagrams: 02/18/22 09:43 02/18/22 09:43 - Medical Decision Making CBC, CMP, BMP unremarkable. Chest x-ray is normal. Given symptoms differential diagnosis includes but not limited to CHF, venous stasis. Patient given IV Las ix. Patient reports improvement of symptoms after several visits to the restroom. She is not requiring supplemental oxygen and ambulatory without any significant distress/dyspnea. Will discharge home on Lasix. Patient instructed to follow-up with PCP within 1 week for further assessment and work-up. Critical care attestation.: If time is entered above; I have spent that time in minutes in the direct care of this critically ill patient, excluding procedure time. ED Disposition Clinical Impression: Dyspnea, Bilateral lower extremity edema Disposition: 01 HOME / SELF CARE / HOMELESS Is pt being admited?: No Condition: Stable Instructions: Shortness of Breath, Adult, [id number], Peripheral Edema Additional Instructions: Please follow-up with your regular doctor within 1 week for further work-up including echocardiogram. Please return if your symptoms worsen. Referrals: RONY HARO MD [Primary Care Provider] - 3-5 Days
[2022-02-18 14:55] VITALS: BP 137/86
--- NOTE | 2022-02-21 09:31 | Electrocardiograph Report ---
[facility] Test Date: 2022-02-18 Test Time: 10:28:39 Pat Name: COLIN SHINE Department: Room: Gender: F [employer]: STEVE : 1960 Requested By: ZO WRIGHT Order Number: [id number] Reading MD: Tushar Cline Measurements Intervals [place] Rate: 79 P: 50 IN: 146 QRS: 22 QRSD: 84 T: 45 QT: 404 QTc: 462 Interpretive Statements Sinus rhythm No previous ECG available for comparison Electronically Signed On 02-21-2022 9:31:01 EDT by Tushar Cline
== END 2022-02-18 14:57 | disposition home or self-care (01) ==
LOC: ED 06:48
DX: R06.00 Dyspnea, unspecified (principal); M79.89 Other specified soft tissue disorders; I10 Essential (primary) hypertension; Z85.9 Personal history of malignant neoplasm, unspecified; Z91.09 Other allergy status, other than to drugs and biological substances
CPT/HCPCS: 36415; 71046; 80053; 83880; 84484; 85025; 93005; 96374; 96375; 99284; J1940; J2270